=== PATIENT | female | born 1950 | race Caucasian/White ===

== ENCOUNTER 2016-11-26 11:13 | Emergency (ER) | payer MEDICARE ==
[2014-05-19 10:37] VITALS: BMI 27.4
[~2016-11-26 11:13] MED LIST: APAP325 MG PO; COLACE100 MG PO; DULCOLAX10 MG/SUPP RC; ELIQUIS2.5 MG PO; HORSETAIL PO; HYDROCODONE-APA1 TAB PO; MAG-OX 400 MG400 MG PO; MILK THISTLE140 MG PO; MIRALAX17 GM PO; OXYCONTIN10 MG PO; PROBIOTIC PO; PROVENTIL/2.5 MG/3 M INH; SELENIUM PO; SENOKOT-S TABLE1 TAB PO; VITAMIN C WITH500 M1 PO; VITAMIN D31000 UNIT PO; XANAX0.25 MG PO; ZOFRAN4 MG PO; [UNRECOGNIZED DRUG - OTHER] PO; [UNRECOGNIZED DRUG - OTHER] PO
== END 2016-11-26 14:25 | disposition home or self-care (01) ==
LOC: D.ER 11:13
DX: S82.831A Other fracture of upper and lower end of right fibula, initial encounter for closed fracture (principal); S92.351A Displaced fracture of fifth metatarsal bone, right foot, initial encounter for closed fracture; W19.XXXA Unspecified fall, initial encounter; Y93.89 Activity, other specified; Y92.018 Other place in single-family (private) house as the place of occurrence of the external cause; J44.9 Chronic obstructive pulmonary disease, unspecified; F41.0 Panic disorder [episodic paroxysmal anxiety]

== ENCOUNTER 2018-08-31 18:19 | Emergency (ER) | payer MEDICARE ==
[~2018-08-31] VITALS: Ht 162.6 cm; Wt 73.6 kg
[2018-08-31 18:23] VITALS: Ht 162.6 cm; Wt 73.6 kg
[2018-08-31 20:05] LABS: BASOPHILS 0.2 % (0-2); EOSINOPHILS 0.8 % (0-7); HEMATOCRIT 37.4 % (36.0-48.0); HEMOGLOBIN 11.8 g/dL (12-16); IMMATURE GRANULOCYTES 0.1 % (0-5); LYMPHOCYTES 32.9 % (15-50); MCH 29.1 pg (26.0-34.0); MCHC 31.6 g/dL (31.0-37.0); MCV 92.3 fL (80.0-100.0); MEAN PLATELET VOLUME 9.4 fL (7.4-10.4); MONOCYTES 5.7 % (2-11); NEUTROPHILS 60.3 % (40-80); RBC 4.05 10x6/uL (4.00-5.40); RDW 13.5 % (11.5-14.5); WBC 9.2 10x3/uL (4.8-10.8)
[2018-08-31 20:22] LABS: PLATELET COUNT 209 10x3/uL (130-400)
[2018-08-31 20:27] LABS: ALBUMIN 3.6 g/dL (3.4-5.0); ALKALINE PHOSPHATASE 58 U/L (46-116); ALT (SGPT) 34 U/L (10-68); BILIRUBIN - TOTAL 0.33 mg/dL (0.2-1.3); CALC OSMOLALITY 286 mosm/kg (275-300); CALCIUM 8.1 mg/dL (8.5-10.1); CARBON DIOXIDE 34.6 mmol/L (21.0-32.0); CHLORIDE - SERUM 100 mmol/L (98-107); CREATININE - SERUM 0.7 mg/dL (0.6-1.3); GLUCOSE 118 mg/dL (74-106); POTASSIUM - SERUM 4.1 mmol/L (3.5-5.1); PROTEIN - SERUM 6.4 g/dL (6.4-8.2); SODIUM 143 mmol/L (136-145); UREA NITROGEN 14 mg/dL (7-18); eGFR NON AFRICAN AMERICAN 88 mL/min (90-120)
[2018-08-31 20:29] LABS: AMYLASE - SERUM 59 U/L (25-115); CREATINE KINASE 56 UL (21-215); LIPASE 123 U/L (73-393)
[2018-08-31 21:06] LABS: TROPONIN-I < 0.017 ng/mL (0.000-0.060)
[2018-08-31] MEDS ORDERED: MIRALAX17 GM PO (21:57)
[2018-09-01 02:00] VITALS: BP 148/72
== END 2018-09-01 02:00 | disposition home or self-care (01) ==
LOC: D.ER 18:19
PROVIDERS: Emergency Medicine
DX: F41.9 Anxiety disorder, unspecified (principal); K59.00 Constipation, unspecified; J44.1 Chronic obstructive pulmonary disease with (acute) exacerbation

== ENCOUNTER 2019-03-11 12:48 | Emergency (ER) | payer MEDICARE ==
[~2019-03-11] VITALS: Ht 162.6 cm; Wt 66.4 kg
[2019-03-11 12:49] VITALS: Ht 162.6 cm; Wt 66.4 kg
[2019-03-11 15:45] VITALS: BP 128/62
== END 2019-03-11 15:45 | disposition home or self-care (01) ==
LOC: D.ER 12:48
DX: R04.0 Epistaxis (principal); J43.9 Emphysema, unspecified